=== PATIENT | male | born 1960 | race Hispanic/Latino ===

== ENCOUNTER 2017-07-03 13:03 | Emergency (ER) | payer SELFPAY ==
[~2017-07-03] VITALS: Ht 172.7 cm; Wt 78.0 kg
[~2017-07-03 13:03] MED LIST: COLCHICINE; FOLIC ACID1 MG PO; LISINOPRIL10 MG PO; LORTAB 5/3255 MG PO; LORTAB 7.5 OR; LORTAB5 OR; MEDDOSEPAK PO; NAPROSYN500 MG PO; NORCO1 TA1 PO; PERCOCET 5/325M1 TAB PO; PREDNISONE5 MG PO; PROTONIX40 M2 PO; RHEUMATREX2.5 MG PO; ULTRAM50 M1 PO; ULTRAM50 MG OR; ZOFRAN ODT4 MG OR; ZYLOPRIM300 MG PO; [UNRECOGNIZED DRUG - OTHER] PO
[2017-07-03 14:32] LABS: IMMATURE GRANULOCYTES 0.3 % (0.0-1.0); MEAN CORPUSCULAR HGB 30.1 pG CALC (26.0-32.0); MEAN CORPUSCULAR HGB CONC 33.9 g/L CALC (32.0-36.0); NEUT# 10.53 thou/uL (1.82-7.42); RED BLOOD COUNT 4.91 mill/uL (4.70-6.10); RED CELL DISTRI WIDTH 12.5 % (11.5-15.5)
[2017-07-03 14:38] LABS: HEMATOCRIT 43.7 % (39.0-50.0); HEMOGLOBIN 14.8 g/dl (14.0-18.0)
[2017-07-03 14:58] LABS: BUN 7 mg/dL (9-20); BUN/CREATININE RATIO 9 (12-20 (CALC)); CARBON DIOXIDE 25 mmol/l (22-30); CHLORIDE 100 mmol/l (95-108); CREATININE 0.9 mg/dL (0.7-1.3); GFR > 60 ML/MIN (>=60 (CALC)); GFR FOR AFR.AMER. > 60 ML/MIN (>=60 (CALC)); SODIUM 138 mmol/l (137-146)
[2017-07-03 14:59] LABS: ANION GAP 17 (6-22 (CALC)); C-REACTIVE PROTEIN 9.5 mg/dL (0-0.9); POTASSIUM 3.9 mmol/l (3.5-5.1)
[2017-07-03 18:20] VITALS: BP 140/86
== END 2017-07-03 18:20 | disposition short-term general hospital (02) | DRG 550 ==
LOC: ED 13:03
PROVIDERS: Family Medicine
DX: M00.9 Pyogenic arthritis, unspecified (principal); M06.9 Rheumatoid arthritis, unspecified; M79.602 Pain in left arm; R50.9 Fever, unspecified; R22.32 Localized swelling, mass and lump, left upper limb

== ENCOUNTER 2021-09-25 13:20 | Emergency (ER) | payer MEDICAID ==
[~2021-09-25] VITALS: Ht 172.7 cm; Wt 76.0 kg
[2021-09-25 13:45] VITALS: BP 127/86
[2021-09-25 14:00] VITALS: BP 137/86
[2021-09-25] MEDS ORDERED: BRILINTA90 MG PO (14:07)
[2021-09-25] MEDS ORDERED: ASPIRIN81 MG PO (14:08)
[2021-09-25 14:15] VITALS: BP 122/76
[2021-09-25] MEDS ORDERED: LIPITOR40 M1 PO (14:15)
[2021-09-25] MEDS ORDERED: OMEPRAZOLE10 MG PO (14:15)
[2021-09-25] MEDS ORDERED: EXFORGE HCT PO (14:16)
[2021-09-25] MEDS ORDERED: TRAMADOL HCL50 MG PO (14:18)
[2021-09-25] MEDS ORDERED: PERCOCET 5/321 COMBO PO (14:28)
[2021-09-25] MEDS ORDERED: COLCHICINE0.6 M2 PO (14:28)
[2021-09-25] MEDS ORDERED: PREDNISONE10 MG PO (14:28)
[2021-09-25 14:31] VITALS: BP 112/68
[2021-09-25 14:42] VITALS: BP 112/68
== END 2021-09-25 14:46 | disposition home or self-care (01) ==
LOC: ED 13:20
DX: M06.9 Rheumatoid arthritis, unspecified (principal); M10.09 Idiopathic gout, multiple sites

== ENCOUNTER 2021-12-23 07:17 | Day surgery (SDC) | payer MEDICAID ==
[~2021-12-23 07:17] MED LIST changes: +ASPIRIN81 MG PO; +BRILINTA90 MG PO; +COLCHICINE0.6 M2 PO; +EXFORGE HCT PO; +LIPITOR40 M1 PO; +OMEPRAZOLE10 MG PO; +PERCOCET 5/321 COMBO PO; +PREDNISONE10 MG PO; +TRAMADOL HCL50 MG PO
[2021-12-23 08:12] VITALS: BP 147/104
== END 2021-12-23 08:20 | disposition home or self-care (01) ==
LOC: ORM 07:17
PROVIDERS: ATTEND Physical Medicine & Rehabilitation
DX: Z53.9 Procedure and treatment not carried out, unspecified reason (principal)

== ENCOUNTER 2022-01-20 07:46 | Day surgery (SDC) | payer MEDICAID ==
[~2022-01-20] VITALS: Ht 172.7 cm; Wt 78.5 kg
[2022-01-20] MEDS ORDERED: ALLOPURINOL300 MG PO (08:07)
[2022-01-20] MEDS ORDERED: [UNRECOGNIZED DRUG - OTHER] PO (08:07)
[2022-01-20 11:04] VITALS: BP 142/89
== END 2022-01-20 10:05 | disposition home or self-care (01) ==
LOC: ORM 07:46
PROVIDERS: ATTEND Physical Medicine & Rehabilitation
DX: M47.816 Spondylosis without myelopathy or radiculopathy, lumbar region (principal); G89.4 Chronic pain syndrome; M06.9 Rheumatoid arthritis, unspecified; M25.50 Pain in unspecified joint; M62.838 Other muscle spasm; M25.561 Pain in right knee

== ENCOUNTER 2022-02-02 12:34 | Emergency (ER) | payer MEDICAID ==
[~2022-02-02] VITALS: Ht 172.7 cm; Wt 79.0 kg
[~2022-02-02 12:34] MED LIST changes: +ALLOPURINOL300 MG PO; +[UNRECOGNIZED DRUG - OTHER] PO
[2022-02-02] MEDS ORDERED: PERCOCET 5/325M1 TAB PO (13:21)
[2022-02-02 13:30] VITALS: BP 140/93
== END 2022-02-02 13:33 | disposition home or self-care (01) ==
LOC: ED 12:34
DX: K04.7 Periapical abscess without sinus (principal); K02.9 Dental caries, unspecified; S02.5XXA Fracture of tooth (traumatic), initial encounter for closed fracture; I10 Essential (primary) hypertension; M06.9 Rheumatoid arthritis, unspecified; M10.9 Gout, unspecified; E78.5 Hyperlipidemia, unspecified; X58.XXXA Exposure to other specified factors, initial encounter; Z86.73 Personal history of transient ischemic attack (TIA), and cerebral infarction without residual deficits

== ENCOUNTER 2022-12-04 21:50 | Emergency (ER) | payer MEDICAID ==
[~2022-12-04] VITALS: Ht 172.7 cm; Wt 77.0 kg
[2022-12-04] MEDS ORDERED: MEDDOSEPAK PO ×2 (22:10→22:41)
[2022-12-04] MEDS ORDERED: LORTAB 1010 MG PO ×2 (22:10→22:41)
[2022-12-04 22:30] VITALS: BP 132/76
== END 2022-12-04 22:34 | disposition home or self-care (01) ==
LOC: ED 21:50
DX: M06.9 Rheumatoid arthritis, unspecified (principal); M10.9 Gout, unspecified; I10 Essential (primary) hypertension; E78.5 Hyperlipidemia, unspecified

== ENCOUNTER 2024-01-10 08:15 | Emergency (ER) | payer MEDICAID ==
[2024-01-10] VITALS (11 sets, daily range): BP systolic 115–143; BP diastolic 80–94
[~2024-01-10] VITALS: Ht 172.7 cm; Wt 77.1 kg
[~2024-01-10 08:15] MED LIST changes: +LORTAB 1010 MG PO
[2024-01-10] MEDS ORDERED: KETOROLAC TROMETHAMINE 30 MG/ML SDV IM ONE (08:50)
[2024-01-10 09:01] LABS: ALBUMIN 4.7 g/dL (3.2-5.0); BILIRUBIN, TOTAL 1.1 mg/dL (0.2-1.3); CREATININE 1.1 mg/dL (0.7-1.3); POTASSIUM 4.5 mmol/l (3.5-5.1); TOTAL PROTEIN 8.3 g/dL (6.3-8.2)
[2024-01-10 09:17] LABS: BASO% 0.6 % (0-3); EOS% 2.2 % (0-8); HEMATOCRIT 44.9 % (39.0-50.0); HEMOGLOBIN 14.8 g/dl (14.0-18.0); IMMATURE GRANULOCYTES 0.1 % (0.0-5.0); LYMPH% 19.7 % (15-41); MEAN CELL VOLUME 88.9 fL CALC (80.0-100.0); MEAN CORPUSCULAR HGB 29.3 pG CALC (26.0-32.0); MONO% 7.4 % (2-13); NEUT# 6.95 thou/uL (1.82-7.42); RED BLOOD COUNT 5.05 mill/uL (4.70-6.10); RED CELL DISTRI WIDTH 12.8 % (11.5-15.5)
[2024-01-10] MEDS ORDERED: MOTRIN400 MG/TAB PO (10:29)
== END 2024-01-10 11:03 | disposition home or self-care (01) ==
LOC: ED 08:15
PROVIDERS: Family Medicine
DX: R07.81 Pleurodynia (principal); I10 Essential (primary) hypertension; E78.5 Hyperlipidemia, unspecified; M06.9 Rheumatoid arthritis, unspecified; M10.9 Gout, unspecified; Z86.73 Personal history of transient ischemic attack (TIA), and cerebral infarction without residual deficits